=== PATIENT | female | born 1935 | race Caucasian/White ===

== ENCOUNTER 2017-07-14 12:19 | Emergency (ER) | payer OTHER ==
[~2017-07-14] VITALS: Ht 160 cm; Wt 53.5 kg
[~2017-07-14 12:19] MED LIST: ATEN50TA PO; COUM2.5T PO; PROM25TA10 PO
[2017-07-14 12:30] VITALS: BP 134/75; PULSE 80; RESP 16; TEMP 97.3; O2SAT 98
--- NOTE | 2017-07-14 13:51 | PD ---
HPI Chief Complaint: Cold / Flu Symptoms Time Seen by Provider: 13:38 Travel History International Travel<30 days: No Contact w/Intl Traveler<30days: No Traveled to known affect area: No History of Present Illness HPI 82-year-old female presents to the emergency department for evaluation of flulike symptoms that started 2 days ago, on . Patient reports history of allergies and chronic nasal congestion. However, she states this worsened on . She states the last night, she started with frequent diarrhea. Patient states she thinks that she may be getting a headache, but is not currently have headache. She reports chills, but no documented fevers. She reports a dry cough and sore throat. She denies any chest pain or shortness of breath. No abdominal pain. No nausea or vomiting. Patient reports history of A. fib on Coumadin, hypertension, PE, DVT. Patient states she has an IVC filter. No exacerbating or alleviating factors. Moderate severity. PFSH Past Medical History Hx Anticoagulant Therapy: Yes (PLAVIX) Atrial Fibrillation: Yes Cancer: No Cardiovascular Problems: No Diabetes: No Diverticulitis: Yes Deep Vein Thrombosis: Yes Glaucoma: No Hepatitis: No Hiatal Hernia: No Hypertension: Yes Respiratory: Yes (HX PE) Thyroid Disease: No Past Surgical History Gynecologic Surgery: Yes (TUBAL LIG.) Pacemaker: No Other Surgery: Yes Social History Alcohol Use: No Tobacco Use: No Substance Use: No Allergies-Medications (Allergen,Severity, Reaction): Coded Allergies: Sulfa (Sulfonamide Antibiotics) (Unverified Allergy, Severe, RASH, ) Reported Meds & Prescriptions Reported Meds & Active Scripts Active Phenergan (Promethazine HCl) 25 Mg Tablet 25 Mg PO Q6H PRN Reported Coumadin (Warfarin) 2.5 Mg Tab 2.5 Mg PO DAILY Atenolol 50 Mg Tab 50 Mg PO DAILY Review of Systems Except as stated in HPI: all other systems reviewed are Neg Physical Exam Narrative GENERAL: Well-nourished, well-developed elderly female patient, afebrile. SKIN: Focused skin assessment warm/dry. HEAD: Normocephalic. Atraumatic. ENT: Mucosa pink and moist. No erythema or exudates. No uvular edema. No uvular , palatal, or tonsillar deviation. Airway patent. Nasal turbinates appear normal without nasal blood, purulent drainage or septal hematoma. Bilateral tympanic membranes are clear without erythema or perforation. EYES: No scleral icterus. No injection or drainage. NECK: Supple, trachea midline. No JVD or lymphadenopathy. CARDIOVASCULAR: Regular rate and rhythm without murmurs, gallops, or rubs. RESPIRATORY: Breath sounds equal bilaterally. No accessory muscle use. Lungs sounds are clear to auscultation. GASTROINTESTINAL: Abdomen soft, non-tender, nondistended. MUSCULOSKELETAL: No cyanosis, or edema. BACK: Nontender without obvious deformity. No CVA tenderness. Data Data Last Documented VS Vital Signs Date Time Temp Pulse Resp B/P (MAP) Pulse Ox O2 Delivery O2 Flow Rate FiO2 07/14/17 14:02 75 18 129/76 (93) 97 Room Air 07/14/17 12:30 97.3 Orders Orders Urinalysis - C+S If Indicated (07/14/17 13:47) Complete Blood Count With Diff (07/14/17 13:47) Comprehensive Metabolic Panel (07/14/17 13:47) Prothrombin Time / Inr (Pt) (07/14/17 13:47) Act Partial Throm Time (Ptt) (07/14/17 13:47) Lipase (07/14/17 13:47) Chest, Single Ap (07/14/17 ) Influenzae A/B Antigen (07/14/17 13:47) Urine Culture (07/14/17 14:35) Oseltamivir (Tamiflu) (07/14/17 16:30) Cephalexin (Keflex) (07/14/17 16:30) Labs Laboratory Tests Test 07/14/17 14:00 07/14/17 14:35 White Blood Count 6.7 TH/MM3 Red Blood Count 4.69 MIL/MM3 Hemoglobin 14.2 GM/DL Hematocrit 42.3 % Mean Corpuscular Volume 90.3 FL Mean Corpuscular Hemoglobin 30.2 PG Mean Corpuscular Hemoglobin Concent 33.5 % Red Cell Distribution Width 14.4 % Platelet Count 162 TH/MM3 Mean Platelet Volume 9.1 FL Neutrophils (%) (Auto) 72.3 % Lymphocytes (%) (Auto) 17.9 % Monocytes (%) (Auto) 8.8 % Eosinophils (%) (Auto) 0.1 % Basophils (%) (Auto) 0.9 % Neutrophils # (Auto) 4.9 TH/MM3 Lymphocytes # (Auto) 1.2 TH/MM3 Monocytes # (Auto) 0.6 TH/MM3 Eosinophils # (Auto) 0.0 TH/MM3 Basophils # (Auto) 0.1 TH/MM3 CBC Comment DIFF FINAL Differential Comment Prothrombin Time 18.3 SEC Prothromb Time International Ratio 1.8 RATIO Activated Partial Thromboplast Time 36.1 SEC Blood Urea Nitrogen 35 MG/DL Creatinine 1.57 MG/DL Random Glucose 100 MG/DL Total Protein 7.4 GM/DL Albumin 3.7 GM/DL Calcium Level 8.5 MG/DL Alkaline Phosphatase 103 U/L Aspartate Amino Transf (AST/SGOT) 28 U/L Alanine Aminotransferase (ALT/SGPT) 12 U/L Total Bilirubin 0.8 MG/DL Sodium Level 137 MEQ/L Potassium Level 3.8 MEQ/L Chloride Level 103 MEQ/L Carbon Dioxide Level 25.8 MEQ/L Anion Gap 8 MEQ/L Estimat Glomerular Filtration Rate 32 ML/MIN Lipase 509 U/L Urine Color YELLOW Urine Turbidity HAZY Urine pH 5.5 Urine Specific [place] 1.019 Urine Protein 100 mg/dL Urine Glucose (UA) NEG mg/dL Urine Ketones NEG mg/dL Urine Occult Blood NEG Urine Nitrite NEG Urine Bilirubin NEG Urine Urobilinogen LESS THAN 2.0 MG/DL Urine Leukocyte Esterase MOD Urine RBC 3 /hpf Urine WBC 17 /hpf Urine Squamous Epithelial Cells <1 /hpf Urine Transitional Epithelial Cells <1 /hpf Urine Renal Epithelial Cells <1 /hpf Urine Bacteria MOD /hpf Urine Hyaline Casts 4 /lpf Urine Waxy Casts 1 /lpf Urine Mucus FEW /lpf Microscopic Urinalysis Comment CULTURE INDICATED MDM Medical Decision Making Medical Screen Exam Complete: Yes Emergency Medical Condition: Yes Medical Record Reviewed: Yes Interpretation(s) Last Impressions Chest X-Ray 07/14/17 0000 Signed Impressions: Service Date/Time: Friday, July 14, 2017 13:52 - CONCLUSION: Compensated cardiomegaly otherwise negative Austen Hartmann MD FACR Differential Diagnosis influenza vs. viral syndrome vs. URI vs. pneumonia vs. UTI Narrative Course 82-year-old female presents to the emergency department for evaluation of flulike symptoms for 2 days. Patient does appear well on exam. IV access established. CBC, CMP, lipase, PTT, PT/INR, UA are ordered and pending. Influenza is ordered and pending. Chest x-ray is ordered and pending. CBC shows no acute abnormality. CMP shows BUN 35, creatinine 1.57, consistent with patient's baseline. Lipase is 509. PT is 18.3, INR 1.8, PTT 36.1. UA shows moderate leukocyte esterase, 17 WBCs, moderate bacteria. Influenza is positive for influenza B. Chest x-ray shows compensated cardiomegaly, otherwise negative. Patient with history of elevated lipase the past. She states that she was on Protonix, but quit taking it. Patient has no abdominal pain, no nausea, no vomiting and appears well. I instructed her to follow-up with her primary care physician and registrar [facility]. Patient looks well on exam. She is ambulatory without difficulty. She is smiling during my exam. I discussed discharge home and the patient feels comfortable. She'll be discharged prescription for Tamiflu and Keflex for UTI. She is given her first dose here. I instructed the patient to return here for any acute worsening of symptoms, low threshold to return if she is getting worse. She verbalizes agreement. The patient was discharged in stable condition with instructions, including return instructions and follow up instructions. Diagnosis Primary Impression: Influenza B Additional Impression: Urinary tract infection Qualified Codes: N30.00 - Acute cystitis without hematuria Referrals: Principal Account Clerk Primary Care Physician Patient Instructions: General Instructions, Influenza (ED), Urinary Tract Infection in Women (ED) Additional Instructions: Take Tamiflu as directed. You were given your first dose here. Take Keflex as directed until gone. You were given your first dose here as well. [id number] Tylenol every 4 hours as needed. Follow-up with primary care physician and registrar [facility]. Return to the emergency department for any acute worsening of symptoms. Med/Other Pt SpecificInfo: Prescription(s) given Scripts Cephalexin (Keflex) 500 Mg Capsule 500 MG PO Q8H for Infection for 7 Days, #21 CAP 0 Refills Prov: Nilda Scanlon 07/14/17 Oseltamivir (Tamiflu) 75 Mg Cap 75 MG PO BID for Mgmt Viral Infection, #9 CAP 0 Refills Prov: Nilda Scanlon 07/14/17 Disposition: 01 DISCHARGE HOME Condition: Stable Nilda Scanlon Jul 14, 2017 13:50
[2017-07-14 14:02] VITALS: BP 129/76; PULSE 75; RESP 18; O2SAT 97
--- NOTE | 2017-07-14 14:10 | RADRPT ---
EXAM DATE/TIME: 07/14/2017 13:52 [facility] COMPARISON: No previous studies available for comparison. INDICATIONS : Patient states cough. MEDICAL HISTORY : Hypertension. SURGICAL HISTORY : None. ENCOUNTER: Initial ACUITY: 3 days PAIN SCORE: 0/10 LOCATION: Bilateral chest FINDINGS: The lungs are clear. The heart is minimally enlarged. The pulmonary vascularity is normal. There is n o evidence for infiltrate or failure. The portion of the bony skeleton visualized is unremarkable. CONCLUSION: Compensated cardiomegaly otherwise negative Austen Hartmann MD FACR on July 14, 2017 at 14:09 Board Certified Radiologist. This report was verified electronically.
[2017-07-14 14:13] LABS: AUTOMATED NEUTROPHIL # 4.9 TH/MM3 (1.8-7.7); BASOPHIL # 0.1 TH/MM3 (0-0.2); BASOPHIL % 0.9 % (0.0-2.0); EOSINOPHIL % 0.1 % (0.0-4.0); HEMATOCRIT 42.3 % (35.0-46.0); HEMOGLOBIN 14.2 GM/DL (11.6-15.3); LYMPH % 17.9 % (9.0-44.0); LYMPHOCYTE # 1.2 TH/MM3 (1.0-4.8); MEAN CELL VOLUME 90.3 FL (80.0-100.0); MEAN CORPUSCULAR HEMOGLOBIN 30.2 PG (27.0-34.0); MEAN CORPUSCULAR HGB CONC 33.5 % (32.0-36.0); MEAN PLATELET VOLUME 9.1 FL (7.0-11.0); MONO % 8.8 % (0.0-8.0); MONOCYTE # 0.6 TH/MM3 (0-0.9); NEUT % 72.3 % (16.0-70.0); PLATELET COUNT 162 TH/MM3 (150-450); RED BLOOD COUNT 4.69 MIL/MM3 (4.00-5.30); RED CELL DISTRIBUTION WIDTH 14.4 % (11.6-17.2); WHITE BLOOD COUNT 6.7 TH/MM3 (4.0-11.0)
[2017-07-14 14:22] LABS: INTERNATIONAL NORMALIZED RATIO 1.8 RATIO; PROTHROMBIN TIME - PATIENT 18.3 SEC (9.8-11.6)
[2017-07-14 14:40] LABS: ALBUMIN 3.7 GM/DL (3.4-5.0); ALT (GPT) 12 U/L (10-53); AST (GOT) 28 U/L (15-37); BICARBONATE 25.8 MEQ/L (21.0-32.0); BLOOD UREA NITROGEN 35 MG/DL (7-18); CALCIUM 8.5 MG/DL (8.5-10.1); CHLORIDE 103 MEQ/L (98-107); CREATININE 1.57 MG/DL (0.50-1.00); GLOMERULAR FILTRATION RATE 32 ML/MIN (>89); GLUCOSE,RANDOM 100 MG/DL (74-106); SODIUM (NA) 137 MEQ/L (136-145)
[2017-07-14 14:43] LABS: ALKALINE PHOSPHATASE 103 U/L (45-117); TOTAL BILIRUBIN ADULT 0.8 MG/DL (0.2-1.0); TOTAL PROTEIN 7.4 GM/DL (6.4-8.2)
[2017-07-14 16:07] LABS: BACTERIA, URINE MOD /hpf; BILIRUBIN, URINE NEG (NEG); BLOOD, URINE NEG (NEG); GLUCOSE,URINE NEG (NEG); HYALINE CAST, URINE 4 /lpf (RARE); KETONE, URINE NEG (NEG); MUCUS URINE FEW /lpf (OCC); NITRITE,URINE NEG (NEG); PH, URINE 5.5 (5.0-8.5); RENAL EPITHELIAL CELLS <1 /hpf; SQUAMOUS EPITHELIAL CELL URINE <1 /hpf (0-5); TRANSITIONAL EPI CELLS, URINE <1 /hpf; URINE COLOR YELLOW (YELLW/STRAW); URINE LEUKOCYTE ESTERASE MOD (NEG); WAXY CAST, URINE 1 /lpf
[2017-07-14] MEDS ORDERED: CEPH-460 PO (16:29)
[2017-07-14] MEDS ORDERED: OSEL75 PO (16:29)
[2017-07-14] MEDS ORDERED: OSELTAMIVIR PHOSPHATE 75 MG CAP PO ONE (16:30)
[2017-07-14] MEDS ORDERED: CEPHALEXIN MONOHYDRATE 500 MG CAP PO ONE (16:30)
== END 2017-07-14 16:59 | disposition home or self-care (01) ==
LOC: NEPE 12:19
DX: J10.1 Influenza due to other identified influenza virus with other respiratory manifestations (principal); N39.0 Urinary tract infection, site not specified; B96.20 Unspecified Escherichia coli [E. coli] as the cause of diseases classified elsewhere; R19.7 Diarrhea, unspecified; I51.7 Cardiomegaly; I48.91 Unspecified atrial fibrillation; I10 Essential (primary) hypertension; Z87.19 Personal history of other diseases of the digestive system; Z86.718 Personal history of other venous thrombosis and embolism
CPT/HCPCS: 71045; 80053; 81001; 83690; 85025; 85610; 85730; 87077; 87086; 87186; 87804; 99284